=== PATIENT | female | born 1955 | race Hispanic/Latino ===

== ENCOUNTER 2017-09-27 21:16 | Emergency (ER) | payer BC ==
[~2017-09-27] VITALS: Ht 149.9 cm; Wt 58.1 kg
[~2017-09-27 21:16] MED LIST: MULTIVITAMIN
== END 2017-09-27 21:39 | disposition home or self-care (01) ==
LOC: ER 21:16
DX: S46.811A Strain of other muscles, fascia and tendons at shoulder and upper arm level, right arm, initial encounter (principal); S46.011A Strain of muscle(s) and tendon(s) of the rotator cuff of right shoulder, initial encounter; J45.909 Unspecified asthma, uncomplicated
CPT/HCPCS: 99282

== ENCOUNTER 2017-11-07 13:09 | Emergency (ER) | payer BC ==
[~2017-11-07] VITALS: Ht 149.9 cm; Wt 58.1 kg
[2017-11-07] MEDS ORDERED: IPRATROPIUM BROMIDE 0.02% 2.5 ML NEB NEB STA (13:12)
[2017-11-07] MEDS ORDERED: METHYLPREDNISOLONE SOD SUCC 125 MG/2ML VIAL IV STA (13:12)
[2017-11-07] MEDS ORDERED: ALBUTEROL SULF 0.083% NEB SOLN 3 ML NEB NEB STA (13:12)
[2017-11-07 14:04] LABS: BASOPHILS % 0.5 % (0.0-1.0); EOSINOPHILS # (AUTO) 0.3 (0.0-0.4); EOSINOPHILS % 3.4 % (0.0-6.0); HEMATOCRIT 42.4 % (34.2-44.1); HEMOGLOBIN 14.9 g/dL (12.0-16.0); LYMPHOCYTES # (AUTO) 3.3 (1.0-3.2); LYMPHOCYTES % 42.8 % (18.0-39.1); MEAN CORPUSCULAR HEMOGLOBIN 31.1 pg (28-32); MEAN CORPUSCULAR HGB CONC 35.1 g/dL (31-35); MEAN CORPUSCULAR VOLUME 88.5 fL (81-99); MONOCYTES # (AUTO) 0.6 (0.2-0.8); MONOCYTES % 8.3 % (4.4-11.3); NEUTROPHILS # (AUTO) 3.4 (2.1-6.9); NEUTROPHILS % 44.7 % (38.7-80.0); PLATELET COUNT 225 x10e3/uL (140-360); RED BLOOD COUNT 4.79 x10e6/uL (3.6-5.1); RED CELL DISTRIBUTION WIDTH 12.3 % (11.7-14.4)
[2017-11-07 14:24] LABS: ALANINE AMINOTRANSFERASE 25 IU/L (0-55); ALBUMIN 3.9 g/dL (3.5-5.0); ALBUMIN/GLOBULIN RATIO 1.2 (0.8-2.0); ALKALINE PHOSPHATASE 90 IU/L (40-150); ANION GAP 10.5 mmol/L (8-16); BLOOD UREA NITROGEN 12 mg/dL (7-26); BUN/CREATININE RATIO 18 (6-25); CALCIUM 9.1 mg/dL (8.4-10.2); CARBON DIOXIDE 27 mmol/L (22-29); CHLORIDE 104 mmol/L (98-107); CREATININE, SERUM 0.66 mg/dL (0.57-1.11); EST GLOMERULAR FILTRATION RATE > 60 ML/MIN (60-); GLUCOSE 105 mg/dL (74-118); POTASSIUM 3.5 mmol/L (3.5-5.1); SODIUM 138 mmol/L (136-145)
--- NOTE | 2017-11-07 14:31 | Diagnostic Imaging Report ---
EXAMINATION: CHEST 2 VIEWS INDICATION: \S\ORDER PLACED BY \S\[id number] \S\[id number] \S\Y COMPARISON: Chest radiograph 04/22/2016 FINDINGS: PA and lateral views TUBES and LINES: None. LUNGS: Lungs are well inflated. Right middle lobe calcified granuloma. There is no evidence of pneumonia or pulmonary edema. PLEURA: No pleural effusion or pneumothorax. HEART AND MEDIASTINUM: The cardiomediastinal silhouette is unremarkable. BONES AND SOFT TISSUES: No acute osseous lesion. Soft tissues are unremarkable. UPPER ABDOMEN: No free air under the diaphragm. IMPRESSION: No acute thoracic abnormality. Signed by: DR. Rusty Ceballos MD on 11/07/2017 2:28 PM
[2017-11-07] MEDS ORDERED: ALBUTEROL SULF 0.083% NEB SOLN 3 ML NEB ONE (14:54)
[2017-11-07] MEDS ORDERED: IPRATROPIUM BROMIDE 0.02% 2.5 ML NEB ONE (14:54)
[2017-11-07 15:24] VITALS: BP 118/49
[2017-11-07] MEDS ORDERED: IPRATROPIUM BROMIDE 0.02% 2.5 ML NEB NEB ONE (15:30)
[2017-11-07] MEDS ORDERED: ALBUTEROL SULF 0.083% NEB SOLN 3 ML NEB NEB ONE (15:30)
== END 2017-11-07 15:40 | disposition home or self-care (01) ==
LOC: ER 13:09
DX: J45.41 Moderate persistent asthma with (acute) exacerbation (principal); I10 Essential (primary) hypertension
CPT/HCPCS: 36415; 71046; 80053; 85025; 94640; 99283; J2930

== ENCOUNTER → 2020-02-10 | Day surgery (SDC) | payer BC, OTHER ==
[~2020-02-10] MED LIST changes: +CALCIUM PO; +HYOSCYAMINE 0.125 MG TAB ONE; +VIT D PO
[2020-02-10 10:20] VITALS: BP 128/88
--- NOTE | 2020-02-10 10:49 | Operative Report ---
DATE OF PROCEDURE: 02/10/2020 SURGEON: Fabian House MD PROCEDURES: EGD with biopsies and colonoscopy with polypectomy. INDICATIONS FOR EGD: Dysphagia. INDICATIONS FOR COLONOSCOPY: Surveillance colonoscopy, personal history of colon polyps. MEDICATIONS: The patient was done under MAC, please see anesthesiologist's note. PROCEDURE IN DETAIL: With the patient in left lateral decubitus position, a flexible fiberoptic Olympus gastroscope was introduced into the esophagus under direct visualization without any difficulty. There was some patchy erythema noted in distal esophagus. The esophagus was then dilated to size 52-Martiniquais Wilson. The scope was then advanced with ease into the stomach. Mucosa overlying the antrum and the body revealed some diffuse erythema and moderate edema, and biopsies were obtained and sent to stain for H. pylori. Pylorus was of normal contour and shape, it was intubated with ease and the scope was advanced all the way to the second portion of the duodenum. The scope was then withdrawn slowly and mucosa overlying the proximal second portion and duodenal bulb appeared to be within normal limits. The scope was then withdrawn back into the stomach and retroflexed, and mucosa overlying the fundus and cardia appeared to be within normal limits. The scope was then straightened out, it was subsequently withdrawn. The patient tolerated the procedure well. IMPRESSION: 1. Mild distal esophagitis. 2. Esophagus dilated to size 52-Martiniquais Wilson. 3. Gastritis, biopsied, biopsies sent to stain for H. pylori. PLAN: 1. Follow up histology. 2. Initiate Protonix 40 mg one p.o. q.a.m. a.c. DESCRIPTION OF PROCEDURE: The patient was then turned around after adequate lubrication of the anal canal, the flexible fiberoptic Olympus colonoscope was inserted into the rectum with ease and advanced all the way to the cecum. A minute polyp was noted in the cecum, that was removed per the cold biopsy forceps. Diverticular disease was pretty much noted throughout the colon. One minute polyp was hot biopsied from the transverse colon. An additional minute polyp was hot biopsied from the descending colon and one polyp was hot biopsied from the sigmoid colon. The rectum appeared to be within normal limits. The scope was then retroflexed into the distal rectum and small internal hemorrhoids were noted, none of which was actively bleeding. The scope was then straightened out, it was subsequently withdrawn. The patient tolerated the procedure well. IMPRESSION: 1. Cecal polyp, cold biopsied. 2. Pandiverticulosis. 3. Transverse colon polyp, hot biopsied. 4. Descending colon polyp, hot biopsied. 5. Sigmoid colon polyp, hot biopsied. 6. Internal hemorrhoids, none actively bleeding. PLAN: 1. Followup histology. 2. Initiate high-fiber, low-fat diet. 3. Initiate high-fiber supplement. 4. The patient might benefit from a followup colonoscopy in 3 to 5 years. Fabian House MD [facility] [place]/JOSEP /[id number] cc: David Fallon MD
== END | disposition home or self-care (01) ==
LOC: OR 05:50
PROVIDERS: ATTEND Internal Medicine Gastroenterology
DX: K20.9 Esophagitis, unspecified (principal); K63.5 Polyp of colon; K29.50 Unspecified chronic gastritis without bleeding; B96.81 Helicobacter pylori [H. pylori] as the cause of diseases classified elsewhere; K57.30 Diverticulosis of large intestine without perforation or abscess without bleeding; K21.9 Gastro-esophageal reflux disease without esophagitis; K59.00 Constipation, unspecified; K64.8 Other hemorrhoids; M32.9 Systemic lupus erythematosus, unspecified; J45.909 Unspecified asthma, uncomplicated; Z01.810 Encounter for preprocedural cardiovascular examination; Z01.812 Encounter for preprocedural laboratory examination; Z11.59 Encounter for screening for other viral diseases; Z68.27 Body mass index [BMI] 27.0-27.9, adult
CPT/HCPCS: 43239; 43450; 45380; 45384; 87635; 93005

== ENCOUNTER 2020-05-07 16:54 | Emergency (ER) | payer BC, OTHER ==
[~2020-05-07] VITALS: Ht 149.9 cm; Wt 58.1 kg
[~2020-05-07 16:54] MED LIST changes: -HYOSCYAMINE 0.125 MG TAB ONE
--- NOTE | 2020-05-07 17:11 | Emergency Department Note ---
History of Present Illnes History of Present Illness Chief Complaint: Abdominal Complaints History of Present Illness This is a 64 year old female c/o abd pain for 1 week. Pt has sinus surgeries and on tylenol #3, has no good BM for 1 wk. She had a small hard stool yesterday. Historian: Patient, Family Member Arrival Mode: Car Mold Shaker Required: No Onset (how long ago): day(s) Radiation: Reports back Severity: moderate Onset quality: gradual Duration (how long): day(s) Timing of current episode: intermittent Progression: worsening Context: Reports new medications Relieving factors: none Exacerbating factors: none Associated symptoms: Reports denies other symptoms Treatments prior to arrival: other (Metamucil) Past Medical/Family History Physician Review I have reviewed the patient's past medical and family history. Any updates have been documented here. Past Medical History Recent Fever: No Clinical Suspicion of Infectio: No New/Unexplained Change in Ment: No Other Medical History: NO HTN MEDS Other Surgery: abdomen tuck Social History Smoking Cessation: Never Smoker Alcohol Use: None Any Illegal Drug Use: No TB Exposure/Symptoms: No Physically hurt or threatened: No Family History Family history of heart diseas: No Other Last Tetanus: Up to date Review of Systems Review of Systems Constitutional: Reports as per HPI EENTM: Reports no symptoms Cardiovascular: Reports no symptoms Respiratory: Reports no symptoms Gastrointestinal: Reports as per HPI, Reports abdominal pain, Reports constipation Genitourinary: Reports no symptoms Musculoskeletal: Reports no symptoms Integumentary: Reports no symptoms Neurological: Reports no symptoms Psychological: Reports no symptoms Endocrine: Reports no symptoms Hematological/Lymphatic: Reports no symptoms Physical Exam Related Data Allergies: Coded Allergies: No Known Drug Allergies (Verified Allergy, Mild, 04/22/16) Vital signs reviewed: Yes Physical Exam CONSTITUTIONAL Constitutional: Present well-developed, Present well-nourished, Present d istressed HENT HENT: Present normocephalic, Present atraumatic, Present oropharynx clear/sarai st, Present nose normal HENT L/R: Present left ext ear normal, Present right ext ear normal EYES Eyes: Reports PERRL, Reports conjunctivae normal NECK Neck: Present ROM normal PULMONARY Pulmonary: Present effort normal, Present breath sounds normal CARDIOVASCULAR Cardiovascular: Present regular rhythm, Present heart sounds normal, Present capillary refill normal, Present normal rate GASTROINTESTINAL Abdominal: Present soft, Present bowel sounds normal, Present tender, Present other (rectal exam: small amount of pebble like stool in rectal vault, small external hemorrhoid) GENITOURINARY Genitourinary: Present exam deferred SKIN Skin: Present warm, Present dry MUSCULOSKELETAL Musculoskeletal: Present ROM normal NEUROLOGICAL Neurological: Present alert, Present oriented x 3, Present no gross motor or sensory deficits PSYCHOLOGICAL Psychological: Present mood/affect normal, Present judgement normal Results Laboratory Lab results reviewed: Yes Laboratory comments no UTI Imaging Imaging results reviewed: Yes Imaging Comments constipation Procedures Rectal Disimpaction Procedural sedation: No Assessment & Plan Medical Decision Making MDM constipation Assessment & Plan Final Impression: (1) Constipation (2) Abdominal tenderness, generalized Depart Disposition: HOME, SELF-half-way Meds Active Scripts Ondansetron Hcl* (ZOFRAN*) 4 Mg Tablet, 4 MG SL Q6H PRN for NAUSEA, #14 MG 0 Refills Prov:ARVINDER HERNANDEZ MD 05/07/20 Lactulose (LACTULOSE) 20 Gm/30 Ml Solution, 30 ML PO Q6H PRN for constipation, #150 ML Prov:RAVINDER HERNANDEZ MD 05/07/20 Na Phos,M-B/Na Phos,Di-Ba (FLEET ENEMA EXTRA) 230 Ml Enema, 1 BOTTLE RC Q4HR PRN for constipation, #3 Prov:RAVINDER HERNANDEZ MD 05/07/20 Reported Medications [Calcium] No Conflict Check, PO DAILY 02/06/20 [Vit D] No Conflict Check, PO WEEKLY 02/06/20 Physician Attestation Provider Attestation patient takes PO well, pain controlled, she can d/c on fleet enemas and use it at home RAVINDER HERNANDEZ MD May 07, 2020 17:11
[2020-05-07] MEDS ORDERED: ONDANSETRON HCL 4 MG ORAL DISINTEGRATING TAB PO ONE (17:30)
[2020-05-07] MEDS ORDERED: KETOROLAC TROMETHAMINE 30 MG/ML VIAL IM ONE (17:30)
[2020-05-07] MEDS ORDERED: HYDROCODONE/APAP 5MG-325MG TAB PO ONE (17:30)
[2020-05-07] MEDS ORDERED: KETOROLAC TROMETHAMINE 60 MG/2 ML VIAL ONE (17:37)
[2020-05-07] MEDS ORDERED: FLEET ENEMA EX230 ML RC (17:38)
[2020-05-07] MEDS ORDERED: ZOFRAN4 MG SL (17:38)
[2020-05-07] MEDS ORDERED: LACTULOSE20 GM/30 M PO (17:38)
--- NOTE | 2020-05-07 18:00 | Diagnostic Imaging Report ---
Acute Abdominal Series CPT CODE: 23190 INDICATION: Lower abdominal pain. COMPARISON: None. FINDINGS: Single view of the chest shows calcified hilar lymph nodes and a calcified granuloma in the right lower lobe measuring 4 mm. No consolidation. The heart is normal in size. Supine and erect views of the abdomen: Medical Devices: None Bowel: Bowel gas pattern is unremarkable. No dilated bowel loops or air-fluid levels. Moderate to large burden of stool throughout the colon. No pneumatosis. Free air: None Abdominal calcifications: None over the renal shadows or along the expected course of the ureters Organomegaly: None Bones: Mild degenerative changes of the spine IMPRESSION: 1. Moderate to large stool burden suggestive of constipation. No evidence of bowel obstruction. 2. Healed granulomatous inflammation of the chest. Signed by: Dr. Samantha Pollard MD on 05/07/2020 5:56 PM
--- OUTSIDE RECORDS SUMMARY | 2020-05-07 18:46 | XMS REPORT | Clinical Summary ---
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 Name Role Phone David Fallon MD PCP Allergies Not on File Medications End Date Status Medication Sig Dispensed Refills Start Date Active ergocalciferol (VITAMIN TOME 1 CA POR 0 D2) 50,000 unit capsule LA BOCA CADA 0 SEMANA Active hydrOXYzine (ATARAX) 25 TK 1 T PO HS 0 MG tablet FOR ITCHING 0 Active pantoprazole (PROTONIX) 0 40 MG EC tablet 0 Active triamcinolone (KENALOG) ESTHER ON ARMS 0 0.025 % cream AND BACK ONCE 0 A DAY PRF ITCHING Active fluocinonide (LIDEX) 0.05 0 % cream 0 Active clobetasoL (OLUX) 0.05 % 0 topical foam 0 Active betamethasone ESTHER TO HAND 0 dipropionate (DIPROLENE) DEMATITIS QD 0 0.05 % cream PRN 01/17/2021 Active glycopyrrolate (RobinuL) Take 1 tablet 90 tablet 11 1 mg tablet (1 mg total) 0 by mouth 3 (three) times a day. Active Problems Not on file Encounters Care Team Description Date Type Specialty Artem Gonzalez MD Oropharyngeal dysphagia 02/06/2020 Hospital Radiology Encounter 02/06/2020 Travel 02/02/2020 Travel Artem Gonzalez MD 01/23/2020 Telephone Access Artem Gonzalez MD Oropharyngeal dysphagia (Primary Dx) 01/18/2020 Office Visit Otolaryngology 01/18/2020 Travel 01/16/2020 Travel after 05/07/2019 Social History Date Tobacco Use Types Packs/Day Years Used Never Smoker Smokeless Tobacco: Never Used Drinks/Week oz/Week Comments Alcohol Use Never Alcohol Habits Answer Date Recorded How often do you have a drink containing alcohol? Never 01/18/2020 How many drinks containing alcohol do you have on No t asked a typical day when you are drinking? How often do you have six or more drinks on one Not asked occasion? Sex Assigned at Date Recorded Not on file Last Filed Vital Signs Reading Time Taken Comments Vital Sign - - Blood Pressure - - Pulse 36.3 C (97.3 F) 01/18/2020 2:05 PM CDT Temperature - - Respiratory Rate - - Oxygen Saturation - - Inhaled Oxygen Concentration 62.2 kg (137 lb 3.2 oz) 01/18/2020 2:05 PM CDT Weight 149.9 cm (4' 11") 01/18/2020 2:05 PM CDT Height 27.71 01/18/2020 2:05 PM CDT Body Mass Index Plan of Treatment Health Maintenance Due Date Last Done Comments CERVICAL CANCER SCREENING 1977 BREAST CANCER SCREENING 2006 COLONOSCOPY SCREENING 2006 SHINGLES VACCINES (#1) 2006 INFLUENZA VACCINE 03/10/2020 Procedures Comments Procedure Name Priority Date/Time Associated Diag nosis FL ESOPHAGRAM DOUBLE Routine 02/06/2020 Oropharyn geal dysphagia CONTRAST 9:50 AM CDT after 05/07/2019 Results * FL Esophagram Double Contrast (02/06/2020 9:50 AM CDT) Specimen Narrative Performed At EXAMINATION: FL ESOPHAGRAM DOUBLE CONTRAST RADI ANT CLINICAL HISTORY: R13.12 Dysphagia oropharyngeal phase, Difficulty Swallowing COMPARISON: None. TECHNIQUE: Double contrast barium esoph agram with effervescent crystals along with thin and thick barium performed. Ref Air Kerma (mGy) 58.70 FINDINGS: Respiratory Support Technician view mediastinum unremarkable wit h exception of mild degenerative facet hypertrophy in the lower cervical spine The patient's swallowing mechanism was intact. No ulceration mass or mucosal abnormality. Mild changes of esophageal dysmotility during the study No evidence of achalasia. No hiatal hernia seen. Moderate gastroesophageal reflux eviden t during water ingestion IMPRESSION: Moderate gastroesophageal reflux Mild esophageal dysmotility. No ulceration, mass or mucosal abnormal ity [id number] Procedure Note Hm Interface, Radiology Results Incoming - 02/06/2020 12:17 PM CDT EXAMINATION: FL ESOPHAGRAM DOUBLE CONTRAST CLINICAL HISTORY: R13.12 Dysphagia oropharyngeal phase, Difficulty Swallowing COMPARISON: None. TECHNIQUE: Double contrast barium esophagram with effervescent crystals along with thin and thick barium performed. Ref Air Kerma (mGy) 58.70 FINDINGS: Respiratory Support Technician view mediastinum unremarkable with exception of mild degenerative facet hypertrophy in the lower cervical spine The patient's swallowing mechanism was intact. No ulceration mass or mucosal abnormality. Mild changes of esophageal dysmotility during the study No evidence of achalasia. No hiatal hernia seen. Moderate gastroesophageal reflux evident during water ingestion IMPRESSION: Moderate gastroesophageal reflux Mild esophageal dysmotility. No ulceration, mass or mucosal abnormality [id number] Performing Organization Address City/State/ZIP Code P karine Number [facility] [address] [place] [address] after 05/07/2019 Insurance Type Payer Benefit Subscriber ID Effective Phone Address Plan / Dates Group PPO BCBS BCBS [id number] CHOICE resent PPO/DEEPIKA JARQUIN PPO Advance Directives For more information, please contact: [phone] Patient Compress Engineer Explanation Type Date Recorded Advance Directives, 02/06/2020 8:58 AM Living Will and Medical Power of Applied Technologist
--- OUTSIDE RECORDS SUMMARY | 2020-05-07 18:46 | XMS REPORT | Continuity of Care Document ---
Author Author [facility] t Organization [facility] Address 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 Laborer Name Role Phone KASSANDRA LOPEZ, DARLIN PCP Florencia HERNANDEZ Attphys Unavailable Carlos LOPEZ, Artem Attphys Florencia RAYMUNDO Attphys Unavailable Payers Payer Name Policy Type Policy Number Effective Date Ex[place] [facility] [place]FEDERAL EMPL [id number] 2015-Pre sentPPO [id number] 2015 00:00:00 [facility] Ppo [id number] I [facility] Problems Condition Name Condition Details Condition Category Status Onset Date Resolution Date Last Treatment Date Treating Clinician Comments Source Chest pain Chest pain Problem Active 2016-04-23 00:00:00 [facility] Bronchitis Bronchitis Problem Active [facility] Allergies, Adverse Reactions, Alerts Allergy Name Allergy Type Status Severity Reaction(s) Onset Date Inacti ve Date Treating Clinician Comments Source No Known Allergies DA Active U 2014-02-21 00:00:00 [facility] Social History Social Habit Start Date Stop Date Quantity Comments Source History SDOH Alcohol Std Drinks [facility] History SDOH Alcohol Binge [facility] Sex Assigned At Litzy Francis Tobacco use and exposure 2020-01-18 00:00:00 2020-01-18 00:00:00 Elissa fatima used [facility] Alcohol intake 2020-01-18 00:00:00 2020-01-18 00:00:00 Lifetime non-drinker (finding) Feliz Francis History SDOH Alcohol Frequency 2020-01-18 00:00:00 2020-01-18 00:00:0 0 1 Feliz Francis Smoking Status Start Date Stop Date Source Never smoker Feliz lora Medications Ordered Medication Name Filled Medication Name Start Date Stop Da te Current Medication? Ordering Clinician Indication Dosage Frequency Signature (SIG) Comments Components Source glycopyrrolate (RobinuL) 1 mg tablet 2020-01-18 00:00: 00 2021-01-17 23:59:00 No 1mg [id number] Take 1 tablet (1 mg total) by mouth 3 (three) times a day. Feliz Francis ergocalciferol (VITAMIN D2) 50,000 unit capsule 2020-01-14 00:00 :00 Yes TOME 1 CA POR LA BOCA CADA SEMANA Feliz Francis fluocinonide (LIDEX) 0.05 % cream 2019-12-28 00:00:00 Yes Feliz Francis hydrOXYzine (ATARAX) 25 MG tablet 2019-12-27 00:00:00 Yes TK 1 T PO HS FOR ITCHING Feliz Francis betamethasone dipropionate (DIPROLENE) 0.05 % cream 12-22 00:00:00 Yes ESTHER TO HAND DEMATITIS QD PRN Feliz Francis triamcinolone (KENALOG) 0.025 % cream 2019-12-22 00:00:00 Y es ESTHER ON ARMS AND BACK ONCE A DAY PRF ITCHING Litzy stodaniele Francis clobetasoL (OLUX) 0.05 % topical foam 2019-12-22 00:00:00 Yes Feliz Francis pantoprazole (PROTONIX) 40 MG EC tablet 2019-12-06 00:00:00 Ye s Feliz Francis Multivitamin , Multivitamin , 2015-11-07 00:00:00 No Daily [facility] Vital Signs Vital Name Observation Time Observation Value Comments Source Body temperature 2020-01-18 14:05:00 36.28 Abby [facility] Body height 2020-01-18 14:05:00 149.9 cm Feliz Francis Body weight 2020-01-18 14:05:00 62.234 kg Feliz Francis BMI 2020-01-18 14:05:00 27.71 kg/m2 [facility] Procedures Procedure Date / Time Performed Performing Clinician Sourc e [place] ESOPHAGRAM DOUBLE CONTRAST 2020-02-06 09:50:00 Jc Lopez do [facility] X-ray of chest, two views 2017-11-07 00:00:00 FLAKITO BREAUX [facility] Plan of Care Planned Activity Planned Date Details Comments Source Future Scheduled Test 2020-03-10 00:00:00 INFLUENZA VACCINE [code = INFLUENZA VACCINE] [facility] Future Scheduled Test 2006 00:00:00 BREAST CANCER SCRE ENING [code = BREAST CANCER SCREENING] [facility] Future Scheduled Test 2006 00:00:00 COLONOSCOPY SCREEN ING [code = COLONOSCOPY SCREENING] [facility] Future Scheduled Test 2006 00:00:00 SHINGLES VACCINES (#1) [code = SHINGLES VACCINES (#1)] [facility] Future Scheduled Test 1977 00:00:00 Screening for wesley gnant neoplasm of cervix (procedure) [code = 639484555] [facility] Encounters Start Date/Time End Date/Time Encounter Type Admission Type Attendi [facility] Care Department Encounter ID Source 2020-02-06 00:00:00 2020-02-06 00:00:00 Outpatient LOPEZJONI SCRUGGS [facility] [id number] Feliz Francis 2020-01-18 00:00:00 2020-01-18 00:00:00 Outpatient LOPEZJONI SCRUGGS [facility] [id number] Feliz Schmitzist 2017-11-07 13:09:00 2017-11-07 15:40:00 Departed Emergency Room ER SANTY RAYMUNDO [facility] [id number] [facility] 2017-09-27 21:16:00 2017-09-27 21:39:00 Departed Emergency Room [facility] [id number] [facility] Results Test Description Test Time Test Comments Results Result Comments Source ABDOMEN 3 VIEW-HOPD 2020-05-07 17:55:00 [place] [address] Patient Name: RICARDO VELASQUEZ MR #: [id number] : 1955 Age/Sex: 64/F Req #: [id number] [facility] Physician: Ordered by: RAVINDER HERNANDEZ MD Report #: [id number] Location: [facility] Room/Bed: Procedure: [id number] HOPD/ABDOMEN 3 VIEW-HOPD Exam Date: 05/07/20 Exam Time: 1742 REPORT STATUS: Signed Acute Abdominal Series CPT CODE: 68393 INDICATION: Lower abdominal pain. COMPARISON: None. FINDINGS: Single view of the chest shows calcified hilar lymph nodes and a calcified granuloma in the right lower lobe measuring 4 mm. No consolidation. The heart is normal in size. Supine and erect views of the abdomen: Medical Devices: None Bowel: Bowel gas pattern is unremarkable. No dilated bowel loops or air-fluid levels. Moderate to large burden of stool throughout the colon. No pneumatosis. Free air: None Abdominal calcifications: None over the renal shadows or along the expected course of the ureters O rganomegaly: None Bones: Mild degenerative changes of the spine IMPRESSION: 1. Moderate to large stool burden suggestive of constipation. No evidence of bowel obstruction. 2. Healed granulomatous inflammation of the chest. Signed by: Dr. Deja Garza MD on 05/07/2020 5:56 PM Dictated By: DEJA GARZA MD 55 Transcribed By: RAMOS on 05/07/201755 COPY TO: RAVINDER HERNANDEZ MD [place] Esophagram Double Contrast 2020-02-06 12:14:00 Interface, Radiology Results 02/06/2020 12:17 PM CDTEXAMINATION: FL ESOPHAGRAM DOUBLE CONTRASTCLINICAL HISTORY: R13.12 Dysphagia oropharyngeal phase, Difficulty SwallowingCOMPARISON: None.TECHNIQUE: Double contrast barium esophagram with effervescent crystals along with thin and thick barium performed.Ref Air Kerma (mGy) 58.70FINDINGS:Sql Developer view mediastinum unremarkable with exception of mild degenerative facet hypertrophy in the lower cervical spineThe patient's swallowing mechanism was intact. No ulceration mass or mucosal abnormality.Mild changes of esophageal dysmotility during the studyNo evidence of achalasia.No hiatal hernia seen.Moderate gastroesophageal reflux evident during water ingestionIMPRESSION:Moderate gastroesophageal refluxMild esophageal dysmotility.No ulceration, mass or mucosal [id number] [facility] Sodium Level 2017-11-07 14:26:00 Test Item Sodium Level (test code = 2951-2) 138 136-145 [facility] HospitalPotassium Zgrnw0771-26-85 14:26:00* Test Item Value Reference Range Interpretation Comments Potassium Level (test code = 2823-3) 3.5 3.5-5.1 [facility] HospitalChloride Efrpd5556-33-79 14:26:00* Test Item Value Reference Range Interpretation Comments Chloride Level (test code = 2075-0) 104 98-107 [facility] HospitalCarbon Dioxide Guavv8502-21-85 14:26:00* Test Item Value Reference Range Interpretation Comments Carbon Dioxide Level (test code = 8-9) 27 22-29 [facility] HospitalAnion Ari5410-56-64 14:26:00* Test Item Value Reference Range Interpretation Comments Anion Gap (test code = 82397-5) 10.5 8-16 [facility] HospitalBlood Urea Bujegaud4804-14-31 14:26:00* Test Item Value Reference Range Interpretation Comments Blood Urea Nitrogen (test code = 3094-0) 12 7-26 [facility] HospitalCreatinine2018-03-31 14:26:00* Test Item Value Reference Range Interpretation Comments Creatinine (test code = 2160-0) 0.66 0.57-1.11 [facility] HospitalBUN/Creatinine Ahjkh0572-03-56 14:26:00* Test Item Value Reference Range Interpretation Comments BUN/Creatinine Ratio (test code = 3097-3) 18 6-25 [facility] HospitalEstimat Glomerular Filtration Rate 2017-11-07 14:26:00* Test Item Value Reference Range Interpretation Comments Estimat Glomerular Filtration Rate (test code = 52948-5) 60- >60 Ranges were taken from the National Kidney Disease Education Program and the [facility] literature.Reference ranges:60 or greater: Kpabud83-32 ( for 3 consecutive months): Chronic kidney disease 15 or less: Kidney failureAudie L. Murphy Memorial VA HospitalGlucose Vyyzh5044-21-14 14:26:00* Test Item Value Reference Range Interpretation Comments Glucose Level (test code = KER0469) 105 74-118 [facility] HospitalCalcium Iymuc3769-43-53 14:26:00* Test Item Value Reference Range Interpretation Comments Calcium Level (test code = 75759-6) 9.1 8.4-10.2 [facility] HospitalTotal Dryfgcdic1058-73-16 14:26:00* Test Item Value Reference Range Interpretation Comments Total Bilirubin (test code = 1975-2) 0.2 0.2-1.2 [facility] HospitalAspartate Amino Transf (AST/SGOT) 2017-11-07 14:26:00* Test Item Value Reference Range Interpretation Comments Aspartate Amino Transf (AST/SGOT) (test code = Aspartate Amino Transf (AST/SGOT)) 27 5-34 [facility] HospitalAlanine Aminotransferase (ALT/SGPT) 2017-11-07 14:26:00* Test Item Value Reference Range Interpretation Comments Alanine Aminotransferase (ALT/SGPT) (test code = 1742-6) 25 0-55 [facility] HospitalTotal Scderpl7765-09-95 14:26:00* Test Item Value Reference Range Interpretation Comments Total Protein (test code = 2885-2) 7.1 6.5-8.1 [facility] HospitalAlbumin2018-03-31 14:26:00* Test Item Value Reference Range Interpretation Comments Albumin (test code = 1751-7) 3.9 3.5-5.0 [facility] HospitalGlobulin2018-03-31 14:26:00* Test Item Value Reference Range Interpretation Comments Globulin (test code = 22776-7) 3.2 2.3-3.5 [facility] HospitalAlbumin/Globulin Mpkbg0807-29-82 14:26:00 * Test Item Value Reference Range Interpretation Comments Albumin/Globulin Ratio (test code = 1759-0) 1.2 0.8-2.0 [facility] HospitalAlkaline Hkabcjxondl5334-62-51 14:26:00* Test Item Value Reference Range Interpretation Comments Alkaline Phosphatase (test code = 6768-6) 90 40-150 [facility] HospitalWhite Blood Ljfjk2459-05-26 14:04:00* Test Item Value Reference Range Interpretation Comments White Blood Count (test code = 6690-2) 7.68 4.8-10.8 [facility] HospitalRed Blood Gyndh2964-98-88 14:04:00* Test Item Value Reference Range Interpretation Comments Red Blood Count (test code = 789-8) 4.79 3.6-5.1 [facility] HospitalHemoglobin2018-03-31 14:04:00* Test Item Value Reference Range Interpretation Comments Hemoglobin (test code = 60999-6) 14.9 12.0-16.0 [facility] HospitalHematocrit2018-03-31 14:04:00* Test Item Value Reference Range Interpretation Comments Hematocrit (test code = 4544-3) 42.4 34.2-44.1 [facility] HospitalMean Corpuscular Emnyqq0816-32-89 14:04:00* Test Item Value Reference Range Interpretation Comments Mean Corpuscular Volume (test code = 787-2) 88.5 81-99 [facility] HospitalMean Corpuscular Ayfektxtgo1657-73-64 14:04:00* Test Item Value Reference Range Interpretation Comments Mean Corpuscular Hemoglobin (test code = 785-6) 31.1 28-32 [facility] HospitalMean Corpuscular Hemoglobin Concent 2017-11-07 14:04:00* Test Item Value Reference Range Interpretation Comments Mean Corpuscular Hemoglobin Concent (test code = 786-4) 35.1 31-35 H [facility] HospitalRed Cell Distribution Gmqfy2216-19-22 14:04:00* Test Item Value Reference Range Interpretation Comments Red Cell Distribution Width (test code = 16382-7) 12.3 11.7 -14.4 [facility] HospitalPlatelet Ignve5124-67-86 14:04:00* Test Item Value Reference Range Interpretation Comments Platelet Count (test code = 777-3) 225 140-360 [facility] HospitalNeutrophils (%) (Auto)2017-11-07 14:04:00 * Test Item Value Reference Range Interpretation Comments Neutrophils (%) (Auto) (test code = 82166-2) 44.7 38.7-80.0 [facility] HospitalLymphocytes (%) (Auto)2017-11-07 14:04:00 * Test Item Value Reference Range Interpretation Comments Lymphocytes (%) (Auto) (test code = 736-9) 42.8 18.0-39.1 H [facility] HospitalMonocytes (%) (Auto)2017-11-07 14:04:00* Test Item Value Reference Range Interpretation Comments Monocytes (%) (Auto) (test code = 5905-5) 8.3 4.4-11.3 [facility] HospitalEosinophils (%) (Auto)2017-11-07 14:04:00 * Test Item Value Reference Range Interpretation Comments Eosinophils (%) (Auto) (test code = 713-8) 3.4 0.0-6.0 [facility] HospitalBasophils (%) (Auto)2017-11-07 14:04:00* Test Item Value Reference Range Interpretation Comments Basophils (%) (Auto) (test code = 706-2) 0.5 0.0-1.0 [facility] HospitalIM GRANULOCYTES %2017-11-07 14:04:00* Test Item Value Reference Range Interpretation Comments IM GRANULOCYTES % (test code = IM GRANULOCYTES %) 0.3 0.0- 1.0 [facility] HospitalNeutrophils # (Auto)2017-11-07 14:04:00* Test Item Value Reference Range Interpretation Comments Neutrophils # (Auto) (test code = 751-8) 3.4 2.1-6.9 [facility] HospitalLymphocytes # (Auto)2017-11-07 14:04:00* Test Item Value Reference Range Interpretation Comments Lymphocytes # (Auto) (test code = 13294-9) 3.3 1.0-3.2 H [facility] HospitalMonocytes # (Auto)2017-11-07 14:04:00* Test Item Value Reference Range Interpretation Comments Monocytes # (Auto) (test code = 742-7) 0.6 0.2-0.8 [facility] HospitalEosinophils # (Auto)2017-11-07 14:04:00* Test Item Value Reference Range Interpretation Comments Eosinophils # (Auto) (test code = 711-2) 0.3 0.0-0.4 [facility] HospitalBasophils # (Auto)2017-11-07 14:04:00* Test Item Value Reference Range Interpretation Comments Basophils # (Auto) (test code = 704-7) 0.0 0.0-0.1 [facility] HospitalAbsolute Immature Granulocyte (auto 2017-11-07 14:04:00* Test Item Value Reference Range Interpretation Comments Absolute Immature Granulocyte (auto (windy t code = Absolute Immature Granulocyte (auto) 0.02 0-0.1 [facility] HospitalCHEST 2 VIEWS [place] [address] Patient Name: RICARDO VELASQUEZ MR #: [id number] : 1955 Age/Sex: 62/F Req #: [id number] Adm Physician: Ordered by: FLAKITO BREAUX MEDICAL ILLUSTRATOR Report #: [id number] Location: ER Room/Bed: Procedure: [id number] DX/CHEST 2 VIEWS Exam Date: 11/07/17 Exam Time: 1400 REPORT STATUS: Signed EXAMINATION: CHEST 2 VIEWS INDICATION: BROCK RISON: Chest radiograph 04/22/2016 FINDINGS: PA and lateral views TUBES and LINES: None. LUNGS: Lungs are well inflated. Right middle lo be calcified granuloma. There is no evidence of pneumonia or pulmonary edema . PLEURA: No pleural effusion or pneumothorax. HEART AND MEDIASTINUM: The cardiomediastinal silhouette is unremarkable. BONES AND SOFT TISS UES: No acute osseous lesion. Soft tissues are unremarkable. UPPER ABDO MEN: No free air under the diaphragm. IMPRESSION: No acute thoracic abnormality. Signed by: DR. Rusty Barrios MD on 11/07/2017 2:28 PM Dictated By: RUSTY BARRIOS MD 1428 COPY TO: BRITANY BREAUX NP
== END 2020-05-07 18:56 | disposition home or self-care (01) ==
LOC: FSED 17:05
DX: K59.00 Constipation, unspecified (principal); R10.817 Generalized abdominal tenderness
CPT/HCPCS: 74021; 81003; 99283; J1885; Q0162

== ENCOUNTER 2021-05-15 09:34 | Emergency (ER) | payer BC ==
[~2021-05-15] VITALS: Ht 149.9 cm; Wt 58.1 kg
[~2021-05-15 09:34] MED LIST changes: +FLEET ENEMA EX230 ML RC; +LACTULOSE20 GM/30 M PO; +ZOFRAN4 MG SL
[2021-05-15] MEDS ORDERED: KETOROLAC TROMETHAMINE 30 MG/ML VIAL IV STA (09:43)
[2021-05-15] MEDS ORDERED: ACETAMINOPHEN 325 MG TAB PO ONE (09:45)
[2021-05-15] MEDS ORDERED: LACTATED RINGER'S 1,000 ML INJ ONE (09:45)
[2021-05-15 09:55] LABS: BASOPHILS % 0.2 % (0.0-1.0); HEMATOCRIT 47.3 % (34.2-44.1); LYMPHOCYTES # (AUTO) 1.6 (1.0-3.2); LYMPHOCYTES % 20.3 % (18.0-39.1); MEAN CORPUSCULAR HEMOGLOBIN 30.7 pg (28-32); MEAN CORPUSCULAR HGB CONC 33.8 g/dL (31-35); MEAN CORPUSCULAR VOLUME 90.6 fL (81-99); MONOCYTES # (AUTO) 0.5 (0.2-0.8); MONOCYTES % 6.2 % (4.4-11.3); NEUTROPHILS # (AUTO) 5.9 (2.1-6.9); NEUTROPHILS % 72.9 % (38.7-80.0); PLATELET COUNT 156 x10e3/uL (140-360); RED BLOOD COUNT 5.22 x10e6/uL (3.6-5.1); RED CELL DISTRIBUTION WIDTH 12.3 % (11.7-14.4)
[2021-05-15 10:48] LABS: ALBUMIN 3.9 g/dL (3.5-5.0); ALBUMIN/GLOBULIN RATIO 1.1 (0.8-2.0); ANION GAP 14.3 mmol/L (8-16); CALCIUM 8.9 mg/dL (8.4-10.2); CREATININE, SERUM 0.65 mg/dL (0.57-1.11); POTASSIUM 3.3 mmol/L (3.5-5.1)
[2021-05-15 11:11] LABS: CREATINE KINASE 37 IU/L (29-168)
[2021-05-15 11:35] LABS: CLARITY,URINE CLEAR (CLEAR); COLOR,URINE YELLOW (YELLOW); KETONES,URINE NEGATIVE (NEGATIVE); LEUKOCYTE ESTERASE ,URINE NEGATIVE (NEGATIVE); NITRITE,URINE NEGATIVE (NEGATIVE); PROTEIN,URINE DIPSTICK NEGATIVE (NEGATIVE); URINE UROBILINOGEN 0.2 mg/dL (0.2 - 1)
[2021-05-15] MEDS ORDERED: AZITHROMYCIN250 MG PO (11:49)
[2021-05-15 11:52] LABS: BACTERIA,URINE FEW /HPF; EPITHELIAL CELLS,URINE FEW /LPF; RBC,URINE 0-5 /HPF (0-5); WBC,URINE (MAN) 0-5 /HPF (0-5)
[2021-05-15] MEDS ORDERED: CASIRIVIMAB/IMDEVIMAB 10 ML in SODIUM CHLORIDE 0.9% 100 ML IV ONE (12:00)
== END 2021-05-15 13:04 | disposition home or self-care (01) ==
LOC: ER 09:40
DX: U07.1 COVID-19 (principal); J40 Bronchitis, not specified as acute or chronic; R11.0 Nausea; R10.30 Lower abdominal pain, unspecified; M79.10 Myalgia, unspecified site
CPT/HCPCS: 36415; 71045; 80053; 81001; 82550; 83880; 84484; 85025; 93005; 99284; J1885; J7050; J7121; U0002

== ENCOUNTER 2021-05-23 14:00 | Emergency (ER) | payer BC ==
[~2021-05-23] VITALS: Ht 149.9 cm; Wt 58.1 kg
[~2021-05-23 14:00] MED LIST changes: +AZITHROMYCIN250 MG PO
== END 2021-05-23 15:11 | disposition home or self-care (01) ==
LOC: ER 14:06
DX: U07.1 COVID-19 (principal); R51.9 Headache, unspecified; M79.10 Myalgia, unspecified site
CPT/HCPCS: 99282

== ENCOUNTER → 2023-01-26 | Day surgery (SDC) | payer BC ==
[2023-01-22 10:31] LABS: BASOPHILS % 0.6 % (0.0-1.0); EOSINOPHILS # (AUTO) 0.1 (0.0-0.4); EOSINOPHILS % 1.3 % (0.0-6.0); HEMATOCRIT 43.3 % (34.2-44.1); HEMOGLOBIN 14.8 g/dL (12.0-16.0); LYMPHOCYTES # (AUTO) 2.2 (1.0-3.2); LYMPHOCYTES % 31.7 % (18.0-39.1); MEAN CORPUSCULAR HEMOGLOBIN 30.8 pg (28-32); MEAN CORPUSCULAR HGB CONC 34.2 g/dL (31-35); MONOCYTES # (AUTO) 0.7 (0.2-0.8); MONOCYTES % 9.9 % (4.4-11.3); NEUTROPHILS # (AUTO) 3.9 (2.1-6.9); NEUTROPHILS % 56.4 % (38.7-80.0); PLATELET COUNT 248 x10e3/uL (140-360); RED BLOOD COUNT 4.81 x10e6/uL (3.6-5.1); RED CELL DISTRIBUTION WIDTH 12.3 % (11.7-14.4)
[~2023-01-26] MED LIST changes: +ACETAMINOPHEN-COD PO; +ALENDRONATE SODI5 MG; +FENTANYL CITRATE/PF 100MCG/2 ML INJ ONE; +LACTATED RINGER'S 1,000 ML ONE; +MIDAZOLAM HCL 2 MG/2 ML VIAL ONE; +TYLENOL #3
[2023-01-26 10:00] VITALS: BP 130/68; PULSE 68; RESP 16; O2SAT 100
== END | disposition home or self-care (01) ==
LOC: OR 08:19
PROVIDERS: ATTEND Internal Medicine Gastroenterology
DX: K20.90 Esophagitis, unspecified without bleeding (principal); D12.0 Benign neoplasm of cecum; K29.50 Unspecified chronic gastritis without bleeding; B96.81 Helicobacter pylori [H. pylori] as the cause of diseases classified elsewhere; D72.820 Lymphocytosis (symptomatic); K57.30 Diverticulosis of large intestine without perforation or abscess without bleeding; K64.8 Other hemorrhoids; M32.9 Systemic lupus erythematosus, unspecified; Z01.810 Encounter for preprocedural cardiovascular examination; Z01.812 Encounter for preprocedural laboratory examination; Z79.899 Other long term (current) drug therapy; Z68.26 Body mass index [BMI] 26.0-26.9, adult; Z86.19 Personal history of other infectious and parasitic diseases
CPT/HCPCS: 36415; 43239; 43450; 45380; 85025; 93005; C9113; J2250; J3010; J7121; 45378

== ENCOUNTER → 2024-06-30 | Outpatient (REF) | payer BC ==
[~2024-06-30] MED LIST changes: -ALENDRONATE SODI5 MG; +ALENDRONATE SODI5 MG PO; +ATORVASTATIN CA40 MG PO; +CALCIUM CARBON500 MG PO; -FENTANYL CITRATE/PF 100MCG/2 ML INJ ONE; +HYDROXYZINE HCL25 MG PO; +IOPAMIDOL 370 MG/ML 100 ML INFUS..BTL INJ ONE; -LACTATED RINGER'S 1,000 ML ONE; +METFORMIN HCL850 MG PO; +METOPROLOL TARTRATE 25 MG TAB ONE; +METOPROLOL TARTRATE INJ 1 MG/ML VIAL ONE; -MIDAZOLAM HCL 2 MG/2 ML VIAL ONE; +NAPROXEN250 MG PO; +NITROGLYCERIN 0.4 MG SUBL ONE; +SODIUM CHLORIDE 0.9% 100 ML ONE
[2024-06-30 10:52] LABS: CREATININE, SERUM 0.67 mg/dL (0.57-1.11)
== END ==
LOC: CT 09:49
PROVIDERS: ATTEND Internal Medicine Cardiovascular Disease
DX: R07.2 Precordial pain (principal)
CPT/HCPCS: 36415; 75574; 82565; 84520; J7050; Q9967; 75580

== ENCOUNTER 2025-02-12 11:19 | Emergency (ER) | payer BC ==
[~2025-02-12] VITALS: Ht 180.3 cm; Wt 63.5 kg
[~2025-02-12 11:19] MED LIST changes: -IOPAMIDOL 370 MG/ML 100 ML INFUS..BTL INJ ONE; -METOPROLOL TARTRATE 25 MG TAB ONE; -METOPROLOL TARTRATE INJ 1 MG/ML VIAL ONE; -NITROGLYCERIN 0.4 MG SUBL ONE; -SODIUM CHLORIDE 0.9% 100 ML ONE
[2025-02-12 11:28] VITALS: PULSE 71; RESP 16; TEMP 98; O2SAT 97
[2025-02-12] MEDS ORDERED: HYDROXYZINE HCL25 MG PO (11:43)
== END 2025-02-12 11:48 | disposition home or self-care (01) ==
LOC: ER 11:41
DX: R21 Rash and other nonspecific skin eruption (principal); L29.9 Pruritus, unspecified; I10 Essential (primary) hypertension; E11.9 Type 2 diabetes mellitus without complications; E78.5 Hyperlipidemia, unspecified; M81.0 Age-related osteoporosis without current pathological fracture; Z86.16 Personal history of COVID-19
CPT/HCPCS: 99282